=== PATIENT | female | born 1980 | race Caucasian/White ===

== ENCOUNTER → 2018-01-05 18:19 | Outpatient (CLI) | payer OTHER, MEDICAID, SELFPAY ==
--- NOTE | 2018-01-05 18:28 | DI.MRI.S_ITS ---
PROCEDURE: MR HEAD/BRAIN WO CON INDICATIONS: LEFT SIDED FACIAL PAIN TECHNIQUE: Noncontrast axial T1 spin echo, axial T2 fast spin echo, sagittal and axial FLAIR, coronal T2 fast spin echo, axial gradient echo, axial diffusion and ADC through the brain. COMPARISON: None. FINDINGS: Image quality: Excellent. CSF Spaces: Basal cisterns are patent. No extra-axial fluid collections. Ventricles are normal in size and shape. Brain: No intracranial masses or hemorrhage. Wu/white matter interface is normal. Brainstem appears normal. Diffusion-weighted images demonstrate no acute ischemic insult. There is a focus of T2/FLAIR hyperintensity in the right frontal periventricular white matter. No chronic ischemic insults. Normal intravascular flow voids are present. Skull and face: Calvarium has normal marrow signal. Orbits appear normal. Sinuses: Mastoids are clear. There is bilateral maxillary sinus mucosal thickening. An air fluid. level is present in the left maxillary sinus. IMPRESSION: 1. No acute intracranial abnormalities. 2. A non-specific T2/FLAIR hyperintensity in the right frontal periventricular white matter. Differential diagnoses include chronic small vessel ischemic change, a demyelinating process such as multiple sclerosis and vasculitis. 2. Bilateral maxillary sinusitis, left greater than right. Dictated by: Renee Rogers M.D. on 01/06/2018 at 8:09 Approved by: Renee Rogers M.D. on 01/06/2018 at 8:16
== END ==
PROVIDERS: Visit Provider Psychiatry & Neurology Neurology
DX: G50.0 Trigeminal neuralgia (principal); J32.0 Chronic maxillary sinusitis
CPT/HCPCS: 70551